=== PATIENT | female | born 2000 | race Caucasian/White ===

== ENCOUNTER 2018-12-17 21:29 | Outpatient (CLI) | payer BC ==
[~2018-12-17] VITALS: Ht 165.1 cm; Wt 63.6 kg
--- NOTE | 2018-12-17 21:40 | NUR ---
G1 at 34 weeks and 1 day presents to unit ambulatory with complaint of contractions at home every 10 minutes but have slowed down now, fighting a fever over the last few days. Reports good movement, denies LOF or vaginal bleeding. Pt oriented to room, call light within reach, bed in low and locked position. EFM and toco explained and applied. Admission assessment started. Vital signs obtained.
[2018-12-17 22:00] VITALS: BP 100/59; PULSE 103; TEMP 98.5
--- NOTE | 2018-12-17 22:00 | NUR ---
SVE attempted by this RN, unable to reach cervix. Will have another RN attempt.
--- NOTE | 2018-12-17 22:20 | NUR ---
18G IV started in L forearm after 1 attempt. Labs obtained for CBC from IV start. Lactated Ringers bolus infusing.
[2018-12-17 22:30] VITALS: BP 104/71; PULSE 96
[2018-12-17 22:43] LABS: BASO % 0.3 % (0.0-2.0); EOS % 0.1 % (0-4.0); GRAN # 12.4 (1.4-6.5); GRAN % 85.6 % (42.2-75.2); HEMATOCRIT 31.6 % (35.0-45.0); HEMOGLOBIN 10.3 g/dl (12.0-15.0); LYMPH # 0.8 (1.2-3.4); LYMPH % 5.2 % (20.0-51.0); MEAN CELL VOLUME 89 fl (80.0-95.0); MEAN CORPUSCULAR HEMOGLOBIN 29 pg (26.0-32.0); MEAN CORPUSCULAR HGB CONC 33 g/dl (33.0-37.0); MONO # 1.1 (0.1-0.6); MONO % 7.8 % (1.7-9.3); PLATELET COUNT 187 K/mm3 (130-400); RED BLOOD COUNT 3.55 M/mm3 (4.10-5.30); REDCELL DISTRIBUTION WIDTH-CV 13.4 % (11.5-14.5)
[2018-12-17 23:00] VITALS: BP 103/68; PULSE 101
[2018-12-17 23:01] LABS: COLLECTION METHOD CLEAN CATCH
--- NOTE | 2018-12-17 23:15 | NUR ---
SVE by SIMON Johnson closed, thick, high, and posterior. Pt updated on plan of care. Still waiting for updated lab results.
[2018-12-17 23:30] VITALS: BP 105/70; PULSE 96
[2018-12-17] MEDS ORDERED: PROVIDA DHA CA1 EACH PO (23:32)
[2018-12-17] MEDS ORDERED: SLOW FE142 MG PO (23:33)
[2018-12-17] MEDS ORDERED: LEXAPRO 10MG10 MG PO (23:33)
[2018-12-18 00:08] LABS: PH 6 (5-8); SQUAMOUS EPITHELIAL 0-2 /hpf; URINE APPEARANCE Hazy; URINE BACTERIA None Seen /hpf; URINE BILIRUBIN Negative (NEGATIVE); URINE BLOOD Negative (NEGATIVE); URINE COLOR Yellow; URINE GLUCOSE Negative (NEGATIVE); URINE KETONE 1+ (NEGATIVE); URINE LEUKOCYTE ESTERASE Negative (NEGATIVE); URINE NITRATE Negative (NEGATIVE); URINE PROTEIN(semi-quant) Negative (NEGATIVE); URINE RBC 0-2 /hpf; URINE UROBILINOGEN Negative (NEGATIVE)
[2018-12-18 00:15] VITALS: BP 104/71; PULSE 107; TEMP 99.5
--- NOTE | 2018-12-18 00:35 | NUR ---
Pt discharged home at this time. Discharge instructions reviewed and return precautions explained to patient. Pt verbalized understanding. Pt seen ambulating off unit with mother.
== END 2018-12-18 00:35 | disposition home or self-care (01) ==
LOC: LDRO 21:29
PROVIDERS: Obstetrics & Gynecology
DX: O62.9 Abnormality of forces of labor, unspecified (principal); Z3A.34 34 weeks gestation of pregnancy
CPT/HCPCS: J7120

== ENCOUNTER 2018-12-23 14:35 | Outpatient (CLI) | payer BC ==
[~2018-12-23] VITALS: Ht 165.1 cm; Wt 65.5 kg
[~2018-12-23 14:35] MED LIST: LEXAPRO 10MG10 MG PO; PROVIDA DHA CA1 EACH PO; SLOW FE142 MG PO
[2018-12-23] MEDS ORDERED: AMOXICILLIN875 MG PO (14:43)
[2018-12-23 14:44] VITALS: BP 111/73; PULSE 86; TEMP 97.9
== END 2018-12-23 15:55 | disposition home or self-care (01) ==
LOC: LDRO 14:35
DX: Z03.71 Encounter for suspected problem with amniotic cavity and membrane ruled out (principal); Z3A.35 35 weeks gestation of pregnancy

== ENCOUNTER 2019-01-14 17:17 | Outpatient (CLI) | payer BC, MEDICAID ==
[~2019-01-14] VITALS: Ht 165.1 cm; Wt 66.7 kg
[~2019-01-14 17:17] MED LIST changes: +AMOXICILLIN875 MG PO
[2019-01-14 17:28] VITALS: BP 121/73; PULSE 104; TEMP 98.4
--- NOTE | 2019-01-14 17:35 | NUR ---
G1 at 38.1 weeks gestation to LDR4 with c/o contractions. She was seen in the office this morning and was 1- and states that she has had contractions throughout the day. Patient denies leaking of fluid or vaginal bleeding and states that baby has been active. Patient changed into gown and wedged to left side. EFMs explained and applied. FHR 145 bpm. CTX q5 min per toco or patient reports. VSS. SVE per Dr. Cee . Plan of care reviewed with patient.
--- NOTE | 2019-01-14 18:25 | NUR ---
1824- REPORT RECEIVED, CARE ASSUMED, DR NERI WANTING TO RECHECK PT. 1826- DR NERI AND THIS NURSE TO BEDSIDE, DR NERI DISCUSSES PLAN WITH PT AND ANSWERS QUESTIONS. 1827- SVE NO CHANGE PER DR NERI. DR NERI DISCUSSES TAKING TYLENOL AND BENADRYL. PT AGREEABLE TO THIS. 1834- WATER AND POPCICLE PROVIDED WELL TYLENOL AND BENADRYL. 1854- DR NERI HAPPY WITH EFM TRACING AND STATES TO DISMISS PT TO HOME AT THIS TIME. PT OFF MONITORS AND UP TO BATHROOM. 1904- DISCHARGE INSTRUCTIONS GIVEN AND PT VERBALIZES UNDERSTANDING OF EARLY VERSUS ACTIVE LABOR. QUESTIONS ANSWERED. 1916- PT DISMISSED TO HOME AMBULATORY ACCOMPANIED BY MOTHER.
== END 2019-01-14 19:17 | disposition home or self-care (01) ==
LOC: LDRO 17:17
DX: O62.9 Abnormality of forces of labor, unspecified (principal); Z3A.38 38 weeks gestation of pregnancy

== ENCOUNTER 2019-01-15 07:17 | Inpatient (IN) | payer BC, MEDICAID ==
[2019-01-15] VITALS (54 sets, daily range): BP systolic 102–143; BP diastolic 61–91; PULSE 75–111; TEMP 97.8–98.8
[~2019-01-15] VITALS: Ht 162.6 cm; Wt 66.8 kg
--- NOTE | 2019-01-15 07:30 | NUR ---
Presents to labor and delivery. States has been having contractions since Thursday. Says these contractions are getting stronger. Assessment done, questions offered and answered.
--- NOTE | 2019-01-15 08:30 | NUR ---
Rests in bed, alert. Patient given water and grape juice to help with accelerations. Strip shown to Dr. Sykes.
--- NOTE | 2019-01-15 09:00 | NUR ---
0925 Monitor strip shown to Dr. Sykes. New orders to start iv and given a bolus of lactated ringers. Iv to right forearm started. Iv fluids of lactated ringers going bolus as ordered.
[2019-01-15 09:17] LABS: COLLECTION METHOD CLEAN CATCH
[2019-01-15 09:20] LABS: BASO % 0.3 % (0.0-2.0); EOS # 0.2 (0.0-0.7); EOS % 1.6 % (0-4.0); GRAN # 8.9 (1.4-6.5); GRAN % 76.5 % (42.2-75.2); HEMOGLOBIN 11.7 g/dl (12.0-15.0); LYMPH # 1.6 (1.2-3.4); LYMPH % 13.6 % (20.0-51.0); MEAN CELL VOLUME 92 fl (80.0-95.0); MEAN CORPUSCULAR HEMOGLOBIN 29 pg (26.0-32.0); MEAN CORPUSCULAR HGB CONC 32 g/dl (33.0-37.0); MEAN PLATELET VOLUME 11.6 fl (7.4-10.4); MONO # 0.9 (0.1-0.6); MONO % 7.4 % (1.7-9.3); PLATELET COUNT 157 K/mm3 (130-400); RED BLOOD COUNT 4.03 M/mm3 (4.10-5.30); REDCELL DISTRIBUTION WIDTH-CV 18.2 % (11.5-14.5)
[2019-01-15 09:22] LABS: PH 7 (5-8); SQUAMOUS EPITHELIAL None Seen /hpf; URINE APPEARANCE Clear; URINE BACTERIA None Seen /hpf; URINE BILIRUBIN Negative (NEGATIVE); URINE BLOOD 1+ (NEGATIVE); URINE COLOR Yellow; URINE GLUCOSE Negative (NEGATIVE); URINE KETONE Negative (NEGATIVE); URINE LEUKOCYTE ESTERASE Negative (NEGATIVE); URINE NITRATE Negative (NEGATIVE); URINE PROTEIN(semi-quant) Negative (NEGATIVE); URINE RBC None Seen /hpf; URINE UROBILINOGEN Negative (NEGATIVE); URINE WBC 0-2 /hpf
[2019-01-15 09:31] LABS: ALBUMIN 3.4 gm/dL (3.5-5.0); BILIRUBIN,TOTAL 0.2 mg/dL (0.0-1.0); CALCIUM 9.5 mg/dL (8.4-10.2); CREATININE, serum 0.52 (0.52-1.25); POTASSIUM 3.5 mmol/L (3.4-5.0); TOTAL PROTEIN 6.9 gm/dL (6.4-8.2)
--- NOTE | 2019-01-15 10:00 | NUR ---
Dr. Sykes here. Vag exam done, reports no change, dilated one.
--- NOTE | 2019-01-15 11:30 | NUR ---
Rests in bed, alert. Pen g. 5 million units iv given as ordered and per protocol.
--- NOTE | 2019-01-15 11:45 | NUR ---
Sits up for epidural. Anesthesia here, visits with patient.1151 Space obtained and catheter placed by anesthesia Guerrero Zelaya c.r.n.a. 1152 Test dose given by anesthesia. Lies down after epidural.
--- NOTE | 2019-01-15 12:30 | NUR ---
Pitocin 2 gray units iv started as ordered and per protocol. Denies any needs at this time.
--- NOTE | 2019-01-15 13:30 | NUR ---
Rests in bed, alert. Repositioned in bed, peanut ball in between legs.
--- NOTE | 2019-01-15 15:00 | NUR ---
Dr. Sykes here, vag exam done. Reports dilated to three. Moderate amount of port red fluid from vaginal area. Dr. Sykes aware of this. Will continue to monitor. Pad changed and repositioned.
--- NOTE | 2019-01-15 15:15 | NUR ---
Dr. Sykes at nurses desk. Watches monitor strip.
--- NOTE | 2019-01-15 15:45 | NUR ---
Dr. Sykes here. Vag exam done. heart rate down in the sixtys-seventys for 50 seconds then back up to 130s. Repositioned in bed. Small amount of red color drainage noted. Pad changed and repositioned.
--- NOTE | 2019-01-15 16:00 | NUR ---
Rests in bed, alert. O28l per Dr. Sykes.
--- NOTE | 2019-01-15 16:15 | NUR ---
Rests in bed, alert. Visits with family. Denies any needs at this time. Dr. Sykes at desk watching monitor.
--- NOTE | 2019-01-15 17:15 | NUR ---
Rests in bed, alert. States pushed the epidural button. Says feeling a little more contraction. Father of the baby here.
--- NOTE | 2019-01-15 17:45 | NUR ---
Rests in bed, alert. Having subtle lates. Repositioned to right side. Dr. Sykes updated on patient with lates.
--- NOTE | 2019-01-15 19:30 | NUR ---
turned to RL with Peanut ball between legs. FHT's continue with no accelerations O2 at 8/mask continues
--- NOTE | 2019-01-15 21:08 | NUR ---
FHT's with variable to 70's with peak of contraction, returns to baseline by end of contraction.
--- NOTE | 2019-01-15 21:30 | NUR ---
SVE with scant change noted. Report called to Dr Cee
--- NOTE | 2019-01-15 21:42 | NUR ---
Dr Cee into room, SVE as noted. FHT's with variable to 60's with exam and contraction. Dr Cee discusses plan of care with pt: C/S. Questions invited and answered by Dr Cee. Brianna gtt off.
--- NOTE | 2019-01-15 22:15 | NUR ---
Off monitors to C/S per bed.
--- NOTE | 2019-01-15 23:35 | NUR ---
To PACU per bed, accompanied by this RN and ANGLE BENDER. Pt tearful, anxious wants to see and hold baby and have family with her. Encouraged calm deep breathing, FOB into room, pt calms down.
[2019-01-16] VITALS (14 sets, daily range): BP systolic 102–137; BP diastolic 68–85; PULSE 79–103; TEMP 97.6–98.4
--- NOTE | 2019-01-16 00:20 | NUR ---
Continues in PACU to cuddle with infant.
--- NOTE | 2019-01-16 00:40 | NUR ---
to postipartum room via bed, accompanied by FOB and this nurse. Oriented to room, plan of care.
[2019-01-16 09:41] LABS: HEMOGLOBIN 10.4 g/dl (12.0-15.0)
[2019-01-17 07:20] VITALS: BP 99/72; PULSE 92; TEMP 98.2
--- NOTE | 2019-01-17 09:43 | NUR ---
Intial visit; Mom and Grandmother thanked Tool Crib Clerk for offering congratulations and God's blessings to their family for the of their baby girl. [employer] Crib Clerk thanked Vero for choosing [facility].
[2019-01-17 16:33] VITALS: BP 104/71; PULSE 92; TEMP 98.4
[2019-01-17 20:40] VITALS: BP 106/73; PULSE 91; TEMP 98.7
[2019-01-18 07:40] VITALS: BP 91/54; PULSE 84; TEMP 98.1
[2019-01-18] MEDS ORDERED: PERCOCET 325 MG1 TA2 PO (08:00)
[2019-01-18] MEDS ORDERED: IBU800 M1 PO (08:00)
== END 2019-01-18 13:55 | disposition home or self-care (01) | DRG 788 ==
LOC: LDR 07:17 → LDRO 07:17 → LDR 10:45 → LDRO 10:45 → OB 10:45
PROVIDERS: Obstetrics & Gynecology; ADMIT Student in an Organized Health Care Education/Training Program
PROC: 10D00Z1 Extraction of Products of Conception, Low, Open Approach (ICD-10-PCS; principal; 2019-01-15)
DX: O62.1 Secondary uterine inertia (principal); Z3A.38 38 weeks gestation of pregnancy; Z37.0 Single live birth; O99.344 Other mental disorders complicating childbirth; F41.8 Other specified anxiety disorders; O99.824 Streptococcus B carrier state complicating childbirth; L30.9 Dermatitis, unspecified; J01.90 Acute sinusitis, unspecified; O75.89 Other specified complications of labor and delivery
CPT/HCPCS: J0690; J1885; J2370; J2405; J2540; J2590; J7120

== ENCOUNTER 2021-02-05 13:09 | Outpatient (RCR) | payer BC ==
[~2021-02-05 13:09] MED LIST changes: +IBU800 M1 PO; +PERCOCET 325 MG1 TA2 PO
== END 2021-05-06 | disposition home or self-care (01) ==
LOC: WSST
DX: R07.0 Pain in throat (principal); R49.0 Dysphonia